=== PATIENT | female | born 1975 ===

== ENCOUNTER 2017-09-21 02:57 | Observation (INO) | payer OTHER ==
[~2017-09-21] VITALS: Ht 165.1 cm; Wt 78.5 kg
[2017-09-21] VITALS (12 sets, daily range): BP systolic 114–130; BP diastolic 58–72; BMI 28.8
[~2017-09-21 02:57] MED LIST: HYDR-385 PO; IBUP-2704 PO; LEVO-3 PO; THYR90TA13 PO
[2017-09-21 06:19] LABS: PLATELET COUNT, AUTOMATED 253 K/uL (150-450)
[2017-09-21] MEDS ORDERED: LIDOCAINE/SOD BICARB 8.4% SYR ID ONE (06:30)
[2017-09-21] MEDS ORDERED: MIDAZOLAM 2 MG/2 ML VIAL IVP PRN (06:30)
[2017-09-21] MEDS ORDERED: NORMOSOL R SOLN(*) 1000 ML BAG 1,000 ML IV PRN (06:30)
[2017-09-21] MEDS ORDERED: PHENAZOPYRIDINE 200 MG TAB PO ONE (06:30)
[2017-09-21] MEDS ORDERED: cefOXitin/DEX(*) 2GM/50ML PREM 50 ML IVPB ONE (06:30)
[2017-09-21] MEDS ORDERED: FAMOTIDINE 20 MG TAB PO ONE (06:30)
[2017-09-21] MEDS ORDERED: fentaNYL CITR 100 MCG/2 ML AMP ONE ×4 (06:38→14:46)
[2017-09-21] MEDS ORDERED: MIDAZOLAM 2 MG/2 ML VIAL ONE (06:38)
[2017-09-21] MEDS ORDERED: NS(*) 0.9% 100 ML BAG 100 ML ONE (06:39)
[2017-09-21] MEDS ORDERED: ONDANSETRON 4 MG/2 ML VIAL ONE (06:39)
[2017-09-21] MEDS ORDERED: ROPIVACAINE 0.2% 20 ML VIAL ONE ×2 (06:39→08:39)
[2017-09-21] MEDS ORDERED: LIDOCAINE MPF 1% 5 ML VIAL ONE (06:39)
[2017-09-21] MEDS ORDERED: PROPOFOL EMUL(*) 10MG/ML 20 ML 20 ML ONE (06:39)
[2017-09-21] MEDS ORDERED: DEXAMETHASONE SOD PHOS 10MG/ML ONE (06:39)
[2017-09-21] MEDS ORDERED: VASOPRESSIN 20 UNIT/ML VIAL ONE (06:40)
[2017-09-21] MEDS ORDERED: ESTROGENS CONJ VAG CREAM 30 GM TUBE PV ONE (06:40)
[2017-09-21] MEDS ORDERED: APREPITANT 40 MG CAP PO ONE (07:10)
[2017-09-21] MEDS ORDERED: PHENYLEPHRINE 10 MG/1 ML VIAL ONE (08:22)
[2017-09-21] MEDS ORDERED: TETRACAINE ONE ×2 (08:35)
[2017-09-21] MEDS ORDERED: ACETAMINOPHEN(*)1000 MG/100 ML 100 ML IVPB ONE (08:40)
[2017-09-21] MEDS ORDERED: KETAMINE HCL 200 MG/20 ML MDV ONE (09:47)
[2017-09-21] MEDS ORDERED: KETOROLAC 30 MG/ML VIAL ONE (10:23)
[2017-09-21] MEDS ORDERED: ROCURONIUM BROM 10 MG/ML 10 ML ONE (11:54)
[2017-09-21] MEDS ORDERED: SUGAMMADEX SOD 500 MG/5 ML SDV ONE (12:15)
[2017-09-21] MEDS ORDERED: ePHEDrine 25 MG/5 ML DISP.SYR IVP ONE (12:21)
[2017-09-21] MEDS ORDERED: HYDROmorphone HCL 2 MG/ML SDV ONE (12:57)
[2017-09-21] MEDS ORDERED: NS 0.9% 20 ML SDV 20 ML ONE (12:57)
[2017-09-21] MEDS ORDERED: ACETAMINOPHEN 325 MG TAB PO PRN (13:35)
[2017-09-21] MEDS ORDERED: HYDROmorphone HCL 2 MG TAB PO PRN (13:35)
[2017-09-21] MEDS ORDERED: ZOLPIDEM TARTRATE 10 MG TAB PO PRN (13:35)
[2017-09-21] MEDS ORDERED: BELLADONNA ALK/OPIUM 60MG SUPP PR PRN (13:35)
[2017-09-21] MEDS ORDERED: PROMETHAZINE 25 MG/ML 1 ML AMP IVP PRN (13:35)
[2017-09-21] MEDS ORDERED: SIMETHICONE 80 MG CHEW CHEW PRN (13:35)
[2017-09-21] MEDS ORDERED: MEPERIDINE 50 MG/ML SYR ONE (13:46)
--- NOTE | 2017-09-21 14:00 | Post Operative Note ---
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
[2017-09-21] MEDS ORDERED: THYROID 60 MG TAB PO ONE ×2 (15:30→16:20)
[2017-09-21] MEDS: KETOROLAC 30 MG/ML VIAL IVP SCH ×2 (16:00→22:39)
[2017-09-21] MEDS: ONDANSETRON 4 MG/2 ML VIAL IV PRN (17:38)
--- NOTE | 2017-09-21 18:21 | OPERATIVE REPORT 1 ---
EVENT DATE: September 21, 2017 SURGEON: Vic Burger MD ANESTHESIOLOGIST: Augustine Gudino MD ANESTHESIA: General endotracheal. NAPPER TENDER: Josh Wallace MD PREOPERATIVE DIAGNOSES 1. Stress urinary incontinence. 2. Incomplete uterine prolapse. 3. Grade 2 rectocele. 4. Grade 2 cystocele. POSTOPERATIVE DIAGNOSES 1. Stress urinary incontinence. 2. Incomplete uterine prolapse. 3. Grade 2 rectocele. 4. Grade 2 cystocele. PROCEDURES PERFORMED 1. Robotic-assisted total laparoscopic hysterectomy. 2. Bilateral salpingectomy. 3. Posterior colporrhaphy. 4. Transobturator mid urethropexy. ESTIMATED BLOOD LOSS 50 mL FLUIDS Crystalloid 2800 mL IV. PROCEDURE IN DETAIL The patient had just received a diagnostic colonoscopy with biopsies by Dr. Collazo. Please see his dictation. She was already in the dorsal supine position and placed under general anesthesia. We moved her to the dorsal lithotomy position and prepped her and draped her in the usual sterile fashion for this robotic case. A weighted speculum was placed in the vagina, and the cervix was visualized. A large VCare uterine manipulator was selected. The uterus was sounded to a depth of 9 cm. The cervix was carefully dilated with a Hegar dilator to a size 6. The uterine manipulator was passed through the cervix into the uterus, bulb inflated and secured. The VCare cup was placed around the cervix and sutured into place and locked into place as well. A Haines catheter was placed in the bladder. Legs were brought back to the supine position, and gloves were changed. The umbilicus was infiltrated with 0.2% Naropin, and an 8 mm skin incision was made. The anterior abdominal wall was elevated while a Veress needle was passed through this incision to the abdomen. A pneumoperitoneum was created to an intra-abdominal pressure of 20 mmHg. This was reduced to 15 once all ports had been placed. The Veress needle was removed, and an 8 mm trocar was passed through this incision under direct visualization with the scope and without incident. The additional ports were placed, first along the right side 8 mm from the umbilical port and then another 8 mm lateral to this one. For the fourth arm along the patient's left side 8 mm from the umbilical port, another trocar was placed under similar technique and under direct visualization on all ports. An accessory port 11 mm was placed in the left upper quadrant 7 mm from the umbilical and left port. At this point, the robotic scope was placed, and targeting was performed. Once passed, all ports were inspected and approximated to put the large band on the port within the patient's fascia. Each of these ports were burped into appropriate location, and then all instruments were placed. The Vessel Sealer was placed on port #1, the monopolar scissors was placed on port #3, and the fenestrated grasper was placed on port #4. All instruments were guided into the pelvis under direct visualization. Once this had all been complete, I scrubbed out and presented at the console for the procedure. The pelvis was inspected. Normal-appearing ovaries. Uterus was enlarged and boggy in appearance. Both tubes appeared normal. Normal left upper quadrant and right upper quadrant. The ureters were observed peristalsing along the posterior ovarian fossa, and they were traced along their entire course in order to ensure location during the procedure. The right fallopian tube was then grasped and elevated while the Vessel Sealer was used to take the tube off its medial salpinx along its entire length. The utero-ovarian ligament was then in a likewise fashion cauterized with the Vessel Sealer and taken down. The round ligament was transected with the Vessel Sealer, and we entered into the broad ligament. The anterior leaflet was tented up, and this was taken down to the bladder, and we skeletonized the uterine vasculature on this side. The vessels were cauterized in this location, and we proceeded on the contralateral side deviating the uterus toward the patient's right and transecting the fallopian tube from its medial salpinx along its entire length to the utero-ovarian ligament which was cauterized and transected with the Vessel Sealer. The round ligament was in likewise fashion cauterized and transected with the vessel sealer, and the anterior leaflet of the broad ligament was and taken down along the anterior uterus, completing the bladder reflection. The VCare was elevated cephalad, and using that as assistance, I was able to take down the bladder away from the uterus using sharp dissection as well as the monopolar cautery. Once the bladder was adequately free, and the left vessels were skeletonized, the vessels were cauterized and then transected with the Vessel Sealer perpendicular to the uterine vessels. Sequential bites were then made with the Vessel Sealer in parallel with the uterine vessels and hugging against the uterus, allowing that vascular pedicle to fall away from the uterus. This was taken down to the vaginal cuff. On the contralateral side, the same procedure was followed. We then performed a colpotomy on the anterior vagina, dissecting down to the VCare. This was taken around circumferentially the entire length of the cervix, transecting the uterosacral ligaments on the posterior side and ensuring that the uterine vasculature was dissected away. The ureters were observed and protected during the entire course. Once the uterus had been disconnected, it was removed vaginally, and the pneumoperitoneum was maintained with a Serge-Almanza bulb in the vagina. Instruments were changed to a long-tipped grasper on arm #1, a Feroz SutureCut needle auto carrier driver was placed on arm #3, and we maintained the grasper on arm #4. At this point, an 0 Vicryl was used to suture ligate the corners of the vaginal cut to the ipsilateral uterosacral ligament and demarcate the lateral location of the vaginal cuff so as not to drift further lateral into where the ureter was. The vaginal cuff was then closed in a running nonlocking stitch and then closed in two layers with the same stitch. Once completed, the uterosacral ligament suspension was performed by grasping the right uterosacral ligament proximal and well away from the ureters and plicating against the corners of the vaginal repair. This was tied down and then reinforced with an 0 Ethibond suture. The same procedure was followed on the contralateral side. This was the uterosacral ligament suspension. On completion, the pelvis was copiously irrigated and suctioned dry. All needles were successfully removed without incident. There were no visible bleeders; therefore, the robotic procedure was terminated at this point, and all instruments were removed. The robot was undocked. Pneumoperitoneum was suctioned out. The 11 mm port received a single fascial stitch using a suture closure device, and the skin incisions were all repaired with a 4-0 Monocryl simple subdermal. The legs were brought back to the lithotomy position, and the weighted speculum was placed in the vagina. The cystocele had been reduced by the apical support of the vagina; therefore, the rectocele was repaired with a posterior colporrhaphy as follows. The defect was demarcated with a marking pen and infiltrated with a diluted Pitressin solution. A marty wedge resection of the perineum was performed as well as a linear incision along the length of the defect. The endopelvic fascia was dissected away from the vaginal mucosa on both sides. A pursestring stitch was placed in the center of the defect to reduce the size of the defect, followed by Nelia plication sutures along its entire length. A finger was inserted in the rectum, and site-specific repair was performed along the length of the posterior repair. Once the endopelvic fascia had been reconstructed, the excess vagina was trimmed away. The gloves were changed, and the vaginal repair was performed with a 2-0 Vicryl in a running locking stitch along the length of the vagina. The perineoplasties were repaired as is typical for a second-degree obstetrical repair. The weighted speculum was again placed in the vagina. We proceeded with the urethropexy by bringing the legs back to a 90 -degree angle, palpating the transobturator fossa extracorporeally, and marking in the groin. I located the mid urethra with the assistance of the Haines bulb, and the vaginal incision was marked with a marking pen and infiltrated with local anesthetic. A linear incision was made along the length of the anticipated incision, and then lateral dissection was performed with tenotomy scissors at 45-degree angle toward the transobturator fossa. This was performed bilaterally, and a finger was used to bluntly dissect to the interior portion of that transobturator membrane. The hook was then passed through the right transobturator membrane, rotated to a 45-degree angle, and continued along its journey into the vaginal dissection. The sling was attached and drawn back through, leaving the blue introducers intracorporeal. The same procedure was followed on the contralateral side. Haines catheter was then removed, and diagnostic cystoscopy was performed. The bladder was inspected in detail, and no visible perforations were observed. Both ureters were found to have excellent urine jets with no visible concern for ureteral kinking. Therefore, the bladder was drained. Haines catheter was replaced. A Toni was used to approximate an approximately 1 cm segment of the mesh against the urethra while the slack was taken out, and the sleeve introducers were removed. The [place] clamp was released. The tension looked good to allow a curved Tay scissors easily to pass beneath the urethra. Therefore, the excess mesh was trimmed away at the perineum, and the vaginal mucosa was sewn over the material in a running locking stitch. Upon completion, the entire vagina was inspected and found to be hemostatic. It was irrigated and suctioned out. The vagina was then packed with a Kerlix sponge moistened with Premarin cream. The perineum was washed, and the puncture incisions were covered with Dermabond skin adhesive. No visible complications. She was awakened from general anesthesia in stable condition and taken to recovery. Sponge, lap, needle, and instrument counts were all correct times three. JUDITHD
[2017-09-21] MEDS: DLR(*) 1000 ML BAG 1,000 ML IV PRN (19:48)
[2017-09-21] MEDS: DOCUSATE CALCIUM 240 MG CAP PO SCH (21:52)
[2017-09-21] MEDS: HYDROmorphone HCL 2 MG TAB PO PRN (21:52)
[2017-09-21] MEDS: FAMOTIDINE 20 MG TAB PO SCH (21:52)
[2017-09-22] MEDS ORDERED: ACETAMINOPHEN(*)1000 MG/100 ML 100 ML IVPB PRN
[2017-09-22] MEDS: ONDANSETRON 4 MG/2 ML VIAL IV PRN (00:33)
[2017-09-22] MEDS: HYDROmorphone HCL 2 MG TAB PO PRN (02:34)
[2017-09-22] MEDS: DLR(*) 1000 ML BAG 1,000 ML IV PRN (02:34)
[2017-09-22] MEDS: KETOROLAC 30 MG/ML VIAL IVP SCH (04:06)
[2017-09-22 04:10] VITALS: BP 109/58
[2017-09-22 07:40] VITALS: BP 105/59
[2017-09-22 07:49] LABS: PLATELET COUNT, AUTOMATED 204 K/uL (150-450)
[2017-09-22] MEDS ORDERED: BISACODYL 10 MG SUPP PR PRN (08:00)
--- NOTE | 2017-09-22 08:01 | OB/GYN Progress Note ---
OB Subjective Progress Notes Subjective Pain controlled, Tolerating diet and activity. GI: NEG Nausea, NEG Vomiting, NEG Flatus Pain: Mild OB Objective Physical Exam Vital Signs Date Time Temp Pulse Resp B/P (MAP) Pulse Ox O2 Delivery O2 Flow Rate FiO2 09/22/17 04:10 99.5 58 16 109/58 (75) 96 Room Air 09/21/17 17:45 1.0 Cardiovascular: Regular Rate and Rhythm Respiratory: Clear to Auscultation Abdomen: Soft, Non-Tender, Non-Distended, Bowel Sounds Present Extremities: No Edema Result Diagram: 09/22/17 0717 Assessment and Plan Problems: (1) History of robot-assisted laparoscopic hysterectomy Assessment & Plan: Pain controlled, Tolerating diet and activity. Will check pvr THONY ARCE MD Sep 22, 2017 08:01
[2017-09-22] MEDS ORDERED: IBUP800T37 PO (08:24)
[2017-09-22] MEDS ORDERED: OXYC-373 PO (08:24)
--- NOTE | 2017-09-22 08:25 | OB/GYN Discharge Summary ---
Discharge Summary Reason for Hosp/Final Diag: (1) History of robot-assisted laparoscopic hysterectomy Hospital Course & Plan: RAH performed on day 1, Pain controlled, Tolerating diet and activity. Had elevated PVR on multiple trials so discharged with leg bag. Lates Vital Signs Vital Signs Date Time Temp Pulse Resp B/P (MAP) Pulse Ox O2 Delivery O2 Flow Rate FiO2 09/22/17 04:10 99.5 58 16 109/58 (75) 96 Room Air 09/21/17 17:45 1.0 Weight (Pounds): 173 Result Diagram: 09/22/17 0717 Condition: Improved Discharge: Home, Self Senior Living Meds Active Scripts Oxycodone Hcl/Acetaminophen (OXYCODONE-ACETAMINOPHEN 5-325) 1 Each Tablet, 1-2 EACH PO Q4H Y for PAIN, #30 TAB 0 Refills TAKE 1-2 TABLET NEEDED FOR PAIN - NO CLOSER THAN EVERY 4 HOURS. Prov:THONY ARCE MD 09/22/17 Ibuprofen (IBUPROFEN) 800 Mg Tablet, 1 TAB PO Q8H, #30 TAB 0 Refills Take with food every 8 hours. Prov:THONY ARCE MD 09/22/17 Reported Medications Thyroid,Pork (GYN PHYSICIAN THYROID) 90 Mg Tablet, 90 MG PO QDAY 08/01/17 Follow up with: Dr. Burger [phone] Follow up in: 6 wks PP or PO, 2 wks PO, 3-4 days Discharge Diet: As Tolerates Discharge Activity: Pelvic Rest Copies to: THONY ARCE MD, JOHN MD Sep 22, 2017 08:25
[2017-09-22] MEDS ORDERED: INFLUENZA VIRUS VAC 0.5 ML SYR IM ONLY ONE (09:00)
[2017-09-22] MEDS ORDERED: THYROID 60 MG TAB PO ONE (09:00)
[2017-09-22] MEDS ORDERED: THYROID 60 MG TAB PO SCH (09:00)
[2017-09-22] MEDS: FAMOTIDINE 20 MG TAB PO SCH (09:06)
[2017-09-22] MEDS: DOCUSATE CALCIUM 240 MG CAP PO SCH (09:06)
[2017-09-22] MEDS ORDERED: LR(*) 1000 ML BAG 1,000 ML IV PRN (10:45)
[2017-09-22] MEDS ORDERED: IBUPROFEN 800 MG TAB PO PRN (11:00)
[2017-09-22 11:30] VITALS: BP 104/68
[2017-09-22 13:05] VITALS: Ht 165.1 cm; Wt 78.5 kg
[2017-09-22 15:10] VITALS: BP 120/68
== END 2017-09-22 16:35 | disposition home or self-care (01) ==
LOC: OR 02:57 → PED 15:20
PROVIDERS: ADMIT Obstetrics & Gynecology; ATTEND Obstetrics & Gynecology
DX: Z12.11 Encounter for screening for malignant neoplasm of colon (principal); N39.3 Stress incontinence (female) (male); N81.2 Incomplete uterovaginal prolapse; N81.10 Cystocele, unspecified; Z80.0 Family history of malignant neoplasm of digestive organs; Z85.038 Personal history of other malignant neoplasm of large intestine
CPT/HCPCS: 00811; 36415; 45385; 58571; 84703; 85014; 85018; 85025; 88305; 88307; C1771; G0378; J0131; J0694; J1100; J1170; J1885; J2001; J2175; J2250; J2370; J2405; J2550; J2704; J2795; J3010; J3490; J7050; J7120; J8501; S2900